=== PATIENT | male | born 1945 | race Hispanic/Latino ===

== ENCOUNTER 2020-01-16 16:26 | Emergency (ER) | payer MEDICARE ==
[~2020-01-16] VITALS: Ht 162.6 cm; Wt 59.0 kg
[2020-01-16] MEDS ORDERED: SODIUM CHLORIDE 0.9% 1000ML 1,000 ML IV STA (16:44)
[2020-01-16] MEDS ORDERED: CEFTRIAXONE SOD 1 GM/NS 50 ML 50 ML IV ONE (16:45)
[2020-01-16 16:52] LABS: BASOPHILS # (AUTO) 0.1 (0.0-0.1); BASOPHILS % 0.6 % (0.0-1.0); EOSINOPHILS % 0.3 % (0.0-6.0); HEMATOCRIT 40.5 % (38.2-49.6); HEMOGLOBIN 13.4 g/dL (14.0-18.0); LYMPHOCYTES # (AUTO) 0.9 (1.0-3.2); LYMPHOCYTES % 8.5 % (18.0-39.1); MEAN CORPUSCULAR HEMOGLOBIN 28.2 pg (28-32); MEAN CORPUSCULAR HGB CONC 33.1 g/dL (31-35); MEAN CORPUSCULAR VOLUME 85.1 fL (81-99); MONOCYTES % 9.9 % (4.4-11.3); NEUTROPHILS # (AUTO) 7.7 (2.1-6.9); NEUTROPHILS % 76.3 % (38.7-80.0); PLATELET COUNT 361 x10e3/uL (140-360); RED BLOOD COUNT 4.76 x10e6/uL (4.3-5.7); RED CELL DISTRIBUTION WIDTH 11.9 % (11.7-14.4)
[2020-01-16 16:56] LABS: INR 1.23; PROTHROMBIN TIME 16.1 seconds (11.9-14.5)
[2020-01-16 16:57] LABS: PARTIAL THROMBOPLASTIN TIME 31.4 seconds (23.8-35.5)
[2020-01-16] MEDS ORDERED: DEXAMETHASONE SOD PHOS INJ 4 MG/ML VIAL IV ONE (17:00)
[2020-01-16] MEDS ORDERED: ACETAMINOPHEN 325 MG TAB PO ONE (17:00)
[2020-01-16 17:07] LABS: ALANINE AMINOTRANSFERASE 27 IU/L (0-55); ALBUMIN 2.6 g/dL (3.5-5.0); ALBUMIN/GLOBULIN RATIO 0.5 (0.8-2.0); ALKALINE PHOSPHATASE 50 IU/L (40-150); ANION GAP 14.3 mmol/L (8-16); BLOOD UREA NITROGEN 19 mg/dL (7-26); BUN/CREATININE RATIO 22 (6-25); CALCIUM 8.1 mg/dL (8.4-10.2); CARBON DIOXIDE 31 mmol/L (22-29); CHLORIDE 96 mmol/L (98-107); CREATINE KINASE 55 IU/L (30-200); CREATININE, SERUM 0.87 mg/dL (0.72-1.25); EST GLOMERULAR FILTRATION RATE > 60 ML/MIN (60-); GLUCOSE 112 mg/dL (74-118); MAGNESIUM 2.3 MG/DL (1.3-2.1); POTASSIUM 3.3 mmol/L (3.5-5.1); SODIUM 138 mmol/L (136-145)
[2020-01-16] MEDS ORDERED: AZITHROMYCIN 500MG/NS 250 ML 250 ML IV ONE (17:30)
--- NOTE | 2020-01-16 17:53 | Emergency Department Note ---
History of Present Illnes History of Present Illness Chief Complaint: COVID PUI History of Present Illness This is a 74 year old male Patient in from home with complaints of fever, shortness of breath and weakness over the last 5 days. Patient reports he tested positive for covid last sunday01/10/20 and has been feeling bad since. Per EMS the patient was hypoxic on room air at 88% and 93% on 4L NC. In triage the patient is 95% on room air and is not in any obvious respiratory distress. Historian: Patient, Leasing Specialist/EMS Arrival Mode: [facility] Treatment INSURANCE PROCESSOR: O2 Industrial Relations Manager Required: No Onset (how long ago): day(s) (5) Radiation: Reports non-radiation Severity: moderate Onset quality: gradual Timing of current episode: constant Progression: worsening Chronicity: new Context: Denies recent illness Relieving factors: none Exacerbating factors: none Associated symptoms: Reports cough, Reports fever/chills, Reports malaise, Reports shortness of breath, Reports weakness, Reports other (ACHY) (MIGUEL ROSE MD) Past Medical/Family History Physician Review I have reviewed the patient's past medical and family history. Any updates have been documented here. (MIGUEL ROSE MD) Past Medical History Recent Fever: Yes Clinical Suspicion of Infectio: No New/Unexplained Change in Ment: No Past Medical History: Hypertension, Hyperlipedemia Past Surgical History: None (MIGUEL ROSE MD) Recent Fever: Yes Clinical Suspicion of Infectio: Yes New/Unexplained Change in Ment: No (ANNA CAMPBELL DO) Social History Smoking Cessation: Never Smoker Counseling Performed: No Alcohol Use: Occasional Any Illegal Drug Use: No TB Exposure/Symptoms: No Physically hurt or threatened: No (MIGUEL ROSE MD) Family History Family history of heart diseas: No (MIGUEL ROSE MD) Other Any Pre-Existing Lines (PICC,: No (MIGUEL ROSE MD) Review of Systems Review of Systems Constitutional: Reports as per HPI, Reports fever, Reports weakness EENTM: Reports no symptoms Cardiovascular: Reports as per HPI Respiratory: Reports dyspnea Gastrointestinal: Reports no symptoms Genitourinary: Reports no symptoms Musculoskeletal: Reports other (ACHING ALL OVER) Integumentary: Reports no symptoms Neurological: Reports no symptoms Psychological: Reports no symptoms Endocrine: Reports no symptoms Hematological/Lymphatic: Reports no symptoms (MIGUEL ROSE MD) Physical Exam Related Data Allergies: Coded Allergies: No Known Allergies (Unverified , 01/16/20) Triage Vital Signs Vital Signs Date Time Temp Pulse Resp B/P (MAP) Pulse Ox O2 Delivery O2 Flow Rate FiO2 01/16/20 16:29 100.3 75 21 160/84 96 Nasal Cannula 4.0 Vital signs reviewed: Yes (MIGUEL ROSE MD) Physical Exam CONSTITUTIONAL Constitutional: Present well-developed, Present well-nourished HENT HENT: Present normocephalic, Present atraumatic, Present oropharynx clear/moist, Present nose normal HENT L/R: Present left ext ear normal, Present right ext ear normal EYES Eyes: Reports PERRL, Reports conjunctivae normal NECK Neck: Present ROM normal PULMONARY Pulmonary: Present effort normal, Present other (DECR BS'S BIBASILAR) CARDIOVASCULAR Cardiovascular: Present regular rhythm, Present heart sounds normal, Present capillary refill normal, Present normal rate GASTROINTESTINAL Abdominal: Present soft, Present nontender, Present bowel sounds normal GENITOURINARY Genitourinary: Present exam deferred SKIN Skin: Present warm, Present dry MUSCULOSKELETAL Musculoskeletal: Present ROM normal NEUROLOGICAL Neurological: Present alert, Present oriented x 3, Present no gross motor or sensory deficits PSYCHOLOGICAL Psychological: Present mood/affect normal, Present judgement normal (MIGUEL ROSE MD) Results Laboratory Result Diagram: 01/16/20 1637 01/16/20 1637 Laboratory Laboratory Tests Test 01/16/20 16:37 White Blood Count 10.09 x10e3/uL (4.8-10.8) Red Blood Count 4.76 x10e6/uL (4.3-5.7) Hemoglobin 13.4 g/dL (14.0-18.0) Hematocrit 40.5 % (38.2-49.6) Mean Corpuscular Volume 85.1 fL (81-99) Mean Corpuscular Hemoglobin 28.2 pg (28-32) Mean Corpuscular Hemoglobin Concent 33.1 g/dL (31-35) Red Cell Distribution Width 11.9 % (11.7-14.4) Platelet Count 361 x10e3/uL (140-360) Neutrophils (%) (Auto) 76.3 % (38.7-80.0) Lymphocytes (%) (Auto) 8.5 % (18.0-39.1) Monocytes (%) (Auto) 9.9 % (4.4-11.3) Eosinophils (%) (Auto) 0.3 % (0.0-6.0) Basophils (%) (Auto) 0.6 % (0.0-1.0) Neutrophils # (Auto) 7.7 (2.1-6.9) Lymphocytes # (Auto) 0.9 (1.0-3.2) Monocytes # (Auto) 1.0 (0.2-0.8) Eosinophils # (Auto) 0.0 (0.0-0.4) Basophils # (Auto) 0.1 (0.0-0.1) Absolute Immature Granulocyte (auto 0.44 x10e3/uL (0-0.1) Prothrombin Time 16.1 seconds (11.9-14.5) Prothromb Time International Ratio 1.23 Activated Partial Thromboplast Time 31.4 seconds (23.8-35.5) Sodium Level 138 mmol/L (136-145) Potassium Level 3.3 mmol/L (3.5-5.1) Chloride Level 96 mmol/L (98-107) Carbon Dioxide Level 31 mmol/L (22-29) Anion Gap 14.3 mmol/L (8-16) Blood Urea Nitrogen 19 mg/dL (7-26) Creatinine 0.87 mg/dL (0.72-1.25) Estimat Glomerular Filtration Rate > 60 ML/MIN (60-) BUN/Creatinine Ratio 22 (6-25) Glucose Level 112 mg/dL (74-118) Calcium Level 8.1 mg/dL (8.4-10.2) Magnesium Level 2.3 MG/DL (1.3-2.1) Total Bilirubin 1.3 mg/dL (0.2-1.2) Aspartate Amino Transf (AST/SGOT) 31 IU/L (5-34) Alanine Aminotransferase (ALT/SGPT) 27 IU/L (0-55) Alkaline Phosphatase 50 IU/L (40-150) Creatine Kinase 55 IU/L (30-200) Creatine Kinase MB 0.70 ng/mL (0-5.0) Troponin I 0.005 ng/mL (0-0.300) B-Type Natriuretic Peptide 33.2 pg/mL (0-100) Total Protein 7.5 g/dL (6.5-8.1) Albumin 2.6 g/dL (3.5-5.0) Globulin 4.9 g/dL (2.3-3.5) Albumin/Globulin Ratio 0.5 (0.8-2.0) Coronavirus (PCR) Detected (NOTDETECTED) Influenza Virus Types A,B Antigen Negative (NEGATIVE) Lab results reviewed: Yes (MIGUEL ROSE MD) Imaging Imaging results reviewed: Yes Impressions CXR interpretated by me : No PTX, cardiomegaly, AIRSPACE opacity in right latera l lung (ANNA CAMPBELL DO) Procedures 12 Lead ECG Interpretation ECG Interpretation : ECG: ECG 1 Industrial Relations Manager: Interpreted by ED physician Date: Jan 16, 2020 Time: 16:28 Rhythm: sinus rhythm Rate: normal BPM: 70 QRS axis: left Conduction: right bundle branch block ST segments normal: Yes T wave inversion: aVR, V1 Other findings: LVH Clinical Impression: abnormal ECG (MIGUEL ROSE MD) Assessment & Plan Medical Decision Making MDM LIKELY COVID PNEUMONIA, MILDLY HYPOXIC 88% ON RA, 98% ON 4L NC - CBC, CHEM, ECG, CARDIACS, CXR, COVID SWAB - R/O COVID19, PNEUMONIA, STEMI/NSTEMI, CHF (MIGUEL ROSE MD) MDM Diff Dx : COVID-19 URI, Sepsis, pna, PTX (ANNA CAMPBELL DO) Reassessment Reassessment CXR AND COVID SWAB PENDING - REPORT TO DR CAMPBELL. LIKELY TRANSFER IF COVID POSITIVE (MIGUEL ROSE MD) Assessment & Plan Final Impression: (1) Suspected COVID-19 virus infection (MIGUEL ROSE MD) Final Impression: (1) Upper respiratory tract infection due to COVID-19 virus (2) Hypoxia (ANNA CAMPBELL DO) Depart Disposition: TRANS TO OTHER [facility] Last Vital Signs Date Time Temp Pulse Resp B/P (MAP) Pulse Ox O2 Delivery O2 Flow Rate FiO2 01/16/20 17:14 70 22 140/84 93 Nasal Cannula 2.0 01/16/20 16:29 100.3 (MIGUEL ROSE MD) Medications in the ED Sodium Chloride 1,000 ml @ 0 mls/hr Q0M STAT IV Last administered on 01/16/20at 17:13; Admin Dose 999 MLS/HR; Start 01/16/20 at 16:44; Stop 01/16/20 at 16:48; Status DC Ceftriaxone Sodium 50 ml @ 100 mls/hr ONCE ONCE IV Last administered on 01/16/20at 17:13; Admin Dose 100 MLS/HR; Start 01/16/20 at 16:45; Stop 01/16/20 at 17:14; Status DC Azithromycin 250 ml @ 200 mls/hr ONCE ONCE IV ; Start 01/16/20 at 17:30; Stop 01/16/20 at 18:44 Dexamethasone Sodium Phosphate 6 mg ONCE ONCE IV Last administered on 01/16/20at 17:13; Admin Dose 6 MG; Start 01/16/20 at 17:00; Stop 01/16/20 at 17:01; Status DC Acetaminophen 975 mg ONCE ONCE PO Last administered on 01/16/20at 17:13; Admin Dose 975 MG; Start 01/16/20 at 17:00; Stop 01/16/20 at 17:01; Status DC (MIGUEL ROSE MD) MIGUEL ROSE MD Jan 16, 2020 17:53 ANNA CAMPBELL DO Jan 16, 2020 19:31
--- NOTE | 2020-01-16 19:56 | NUR ---
Report attempted to [facility] at this time.
--- NOTE | 2020-01-16 20:05 | Diagnostic Imaging Report ---
EXAMINATION: CHEST SINGLE (PORTABLE) INDICATION: ^Y ^covid ^[id number] ^[id number] COMPARISON: None FINDINGS: TUBES and LINES: None. LUNGS: Low lung volumes with bronchovascular crowding. There is multifocal interstitial and airspace opacity throughout both lungs. PLEURA: No pleural effusion or pneumothorax. HEART AND MEDIASTINUM: The cardiomediastinal silhouette is unremarkable. There are atherosclerotic calcifications within the aorta. BONES AND SOFT TISSUES: Degenerative changes in the spine and shoulders. Soft tissues are unremarkable. UPPER ABDOMEN: No free air under the diaphragm. IMPRESSION: Diffuse interstitial and airspace opacities most compatible with multifocal pneumonia with probable superimposed pulmonary edema. Preliminary result was discussed with Dr. Loving at 7:45 PM on 01/16/2020. Signed by: Tete Shen MD on 01/16/2020 8:02 PM
--- OUTSIDE RECORDS SUMMARY | 2020-01-17 10:13 | XMS REPORT | Continuity of Care Document ---
Author Author [facility] t Organization [facility] Address [address] [place] [address] Phone Unavailable Care Team Providers Care Television Cable Installer Name Role Phone Amadou NIELSEN III PCP Unavailable CONSTANTINE MONTANEZ Attphys Unavailable Tarik HARPER, Constantine Rivera Attphys Sushant HARPER, Kyara Golden Attphys [phone] ANNA CAMPBELL Attphys Unavailable CONSTANTINE MONTANEZ Admphys Unavailable Payers Payer Name Policy Type Policy Number Effective Date Expiration Date S sara [employer] MEDICARE MCD CAREAMERIGROUP [id number]/2019 -Present [id number] 2019 00:00:00 [facility] [employer] [id number] 2019 00:00:00 [facility] Problems Condition Name Condition Details Condition Category Status Onset Date Resolution Date Last Treatment Date Treating Clinician Comments Source Pneumonia due to COVID-19 virus Pneumonia due to COVID-19 virus Dis ease Active 2020-01-16 00:00:00 [facility] Acute respiratory failure with hypoxia Acute respiratory guanakito lure with hypoxia Disease Active 2020-01-16 00:00:00 [facility] Suspected severe acute respiratory syndr ome coronavirus 2 (SARS-CoV-2) infection Problem Active [facility] Upper respiratory tract infection due to severe acute respiratory syndrome coronavirus 2 (SARS-CoV-2) Problem Active [facility] Hypoxia Problem Active [facility] Allergies, Adverse Reactions, Alerts Allergy Name Allergy Type Status Severity Reaction(s) Onset Date Inacti ve Date Treating Clinician Comments Source No Known Allergies DA Active U 2015-12-10 00:00:00 [facility] Social History Social Habit Start Date Stop Date Quantity Comments Source Sex Assigned At [facility] Exposure to SARS-CoV-2 (event) Yes [facility] Medications Ordered Medication Name Filled Medication Name Start Date Stop Da te Current Medication? Ordering Clinician Indication Dosage Frequency Signature (SIG) Comments Components Source tamsulosin (FLOMAX) 0.4 mg Cap 24 hr capsule 2020-01-17 01:39:33 Yes .4mg QD Take 0.4 mg by mouth daily. [facility] donepeziL (ARICEPT) 5 MG tablet 2020-01-17 01:39:33 Yes mild to moderate Alzheimer's type dementia 5mg QD Take 5 mg by mouth nightly. [facility] lisinopriL (PRINIVIL,ZESTRIL) 40 MG tablet 2020-01-17 01:39: 33 Yes hypertension 40mg QD Take 40 mg by mouth daily. [facility] Vital Signs Vital Name Observation Time Observation Value Comments Source Systolic blood pressure 2020-01-17 09:00:00 157 mm[Hg] [facility] Diastolic blood pressure 2020-01-17 09:00:00 76 mm[Hg] [facility] Heart rate 2020-01-17 09:00:00 68 /min [facility] Body temperature 2020-01-17 09:00:00 36.39 Gwendolyn [facility] Respiratory rate 2020-01-17 09:00:00 18 /min [facility] Oxygen saturation in Arterial blood by Pulse oximetry 2019-02 09:00:00 98 [facility] height 2020-01-16 22:01:00 162.6 cm [facility] Body weight 2020-01-16 22:01:00 74.662 kg [facility] BMI 2020-01-16 22:01:00 28.25 kg/m2 [facility] Heart Rate 2020-01-16 20:16:00 55 /min [facility] Respiratory rate 2020-01-16 20:16:00 22 /min [facility] Oxygen saturation by Pulse oximetry 2020-01-16 20:16:00 99 /min [facility] Weight 2020-01-16 16:29:00 130 [lb_av] [facility] BMI (Body Mass Index) 2020-01-16 16:29:00 22.3 kg/m2 [facility] Procedures Procedure Date / Time Performed Performing Clinician Sour e XR CHEST 1 VIEW PORTABLE/BEDSIDE [facility]17 [facility] (7) 2020-01-17 04:13:00 Miguel Montanez Ra sheed [facility] MAGNESIUM 2020-01-17 04:13:00 [facility] PROT[facility]/INR 2020-01-17 04:13:00 Miguel Montanez [facility] CBC W/PLT COUNT & AUTO DIFFERENTIAL 2020-01-17 04:13:00 Miguel Montanez [facility] Plan of Care Planned Activity Planned Date Details Comments Source Future Scheduled Test 2019-10-28 00:00:00 INFLUENZA VACCINE (#1) [code = INFLUENZA VACCINE (#1)] [facility] Future Scheduled Test 2019-02-26 00:00:00 Medicare IPPE (WEL COME TO MEDICARE) [code = Medicare IPPE (WELCOME TO MEDICARE)] [facility] Future Scheduled Test 2012-10-09 00:00:00 PNEUMOCOCCAL 65+ Y RS (1 of 1 - [id number] PCV13) [code = PNEUMOCOCCAL 65+ YRS (1 of 1 - [id number]_[id number] PCV13)] [facility] Future Scheduled Test 1945 00:00:00 Screening for ira gnant neoplasm of colon (procedure) [code = 444110769] [facility] Encounters Start Date/Time End Date/Time Encounter Type Admission Type Attendi [facility] Facility Care Department Encounter ID Source 2020-01-16 16:50:00 2020-01-16 21:06:00 Departed Emergency Room 1 ANNA CAMPBELL [facility] [id number] [facility] 2017-01-15 08:57:00 2017-01-15 08:57:00 Outpatient C [facility] [id number] [facility] Results Test Description Test Time Test Comments Results Result Comments Source RAD, CHEST, 1 VIEW, NON DEPT 2020-01-17 08:02:00 Reason for exam:->covid, possible pnaShould this be performed at the bedside?->Yes [facility] 1945 Sex: MFINAL REPORT TECHNIQUE: Frontal view of the chest. INDICATION: covid, possible pna COMPARISON: 01/16/2020. FINDINGS: LINES/TUBES: None. LUNGS: Lung volumes are low. Peripheral consolidative opacities within the right mid and lower lung. Mild patchy opacities at the left lung base.. PLEURA: No pneumothorax or significant pleural effusion. HEART AND MEDIASTINUM: The cardiom ediastinal silhouette is within normal limits. SOFT TISSUES AND BONES: Unremarkable.Follow-up to resolution is recommended. IMPRESSION:Unchanged Multifocal consolidative opacities, right significantly greater than left, concerning for pneumonia. Signed: Kendal Hassan Verified Date/Time: 01/17/2020 08:02:46 Reading Location: [facility] B1 C013Y CT Body Reading Room chest 1 view portable / bedside 2020-01-17 08:02:00 Interface, External Ris In - 01/17/2020 8:04 AM CSTFINAL REPORT TECHNIQUE: Frontal view of the chest. INDICATION: covid, possible pna COMPARISON: 01/16/2020. FINDINGS: LINES/TUBES: None. LUNGS: Lung volumes are low. Peripheral consolidative opacities within the right mid and lower lung. Mild patchy opacities at the left lung base.. PLEURA: No pneumothorax or significant pleural effusion. HEART AND MEDIASTINUM: The cardiomediastinal silhouette is within normal limits. SOFT TISSUES AND BONES: Unremarkable.Follow-up to resolution is recommended. IMPRESSION:Unchanged Multifocal consolidative opacities, right significantly greater than left, concerning for pneumonia. Signed: Kendal Hassan [facility] Verified Date/Time: 01/17/2020 08:02:46 Reading Location: [facility] B1 C013Y CT Body Reading Room [facility] Basic metabolic panel 2020-01-17 05:30:00 Test Item Sodium (test code = 2951-2) 138 meq/L 135-148 Potassium (test code = 2823-3) 4.2 meq/L 3.5-5.5 Chloride (test code = 2075-0) 102 meq/L 98-106 CO2 (test code = 2027-9) 27 meq/L 20-31 BUN (test code = 3094-0) 22 mg/dL 10-26 Creatinine (test code = 2160-0) 0.75 mg/dL 0.5-1.2 Glucose (test code = 2345-7) 167 mg/dL 70-110 H Calcium (test code = 65176-8) 7.6 mg/dL 8.5-10.5 L EGFR (test code = 33833-3) I NSUFFICIENT CLINICAL DATA TO CALCULATE ESTIMATED GFR. LEXIS (test code = LEXIS) Windows Technical Specialist ID - [email or web address] Lab Interpretation (test code = 49370-8) [facility]normal [facility] [id number] 05:30:00* Test Item Value Reference Range Interpretation Comments SODIUM (BEAKER) (test code = 381) 138 meq/L 135-148 POTASSIUM (BEAKER) (test code = 379) 4.2 meq/L 3.5-5.5 CHLORIDE (BEAKER) (test code = 382) 102 meq/L 98-106 CO2 (BEAKER) (test code = 355) 27 meq/L 20-31 BLOOD UREA NITROGEN (BEAKER) (test code = 354) 22 mg/dL 10-26 CREATININE (BEAKER) (test code = 358) 0.75 mg/dL 0.50-1.20 GLUCOSE RANDOM (BEAKER) (test code = 652) 167 mg/dL 70-110 H CALCIUM (BEAKER) (test code = 697) 7.6 mg/dL 8.5-10.5 L EGFR (BEAKER) (test code = 1092) INSUFFICIENT CLINICAL DATA TO CALCULATE ESTIMATED GFR. Windows Technical Specialist ID - [id number] 05:19:00* Test Item Value Reference Range Interpretation Comments Magnesium (test code = 92666-2) 2.3 mg/dL 1.5-3 LEXIS (test code = LEXIS) Windows Technical Specialist ID - MADELINE Lab Interpretation (test code = 48330-6) Normal [facility]2020-11-21 05:19:00* Test Item Value Reference Range Interpretation Comments MAGNESIUM (BEAKER) (test code = 627) 2.3 mg/dL 1.5-3.0 [employer] Technical Specialist ID - MADELINEProthrombin time/NTX4619-07-02 04:31:00* Test Item Value Reference Range Interpretation Comments Protime (test code = 5902-2) 17.2 11.8- 14.4 seconds H INR (test code = 6301-6) 1.40 1.20-1.50 LEXIS (test code = LEXIS) RECOMMENDED COUMADIN/WARFARI N INR THERAPY RANGESSTANDARD DOSE: 2.0 - 3.0 Includes: PROPHYLAXIS for venous thrombosis, systemic embolization; TREATMENT for venous thrombosis and/or pulmonary embolus.HIGH RISK: Target INR is 2.5-3.5 for patients with mechanical heart valves. Lab Interpretation (test code = 97058-7) [facility]normal [facility][id number] 04:31:00* Test Item Value Reference Range Interpretation Comments PROTIME (BEAKER) (test code = 759) 17.2 seconds 11.8-14.4 H INR (BEAKER) (test code = 370) 1.40 1.20-1.50 RECOMMENDED COUMADIN/WARFARIN INR THERAPY RANGESSTANDARD DOSE: 2.0 - 3.0 Inclu jenifer: PROPHYLAXIS for venous thrombosis, systemic embolization; TREATMENT for danika ous thrombosis and/or pulmonary embolus.HIGH RISK: Target INR is 2.5-3.5 for pat ients with mechanical heart valves.CBC with platelet count + automated diff 2020-01-17 04:29:00* Test Item Value Reference Range Interpretation Comments WBC (test code = 6690-2) 8.1 4.0- 10.0 K/L RBC (test code = 789-8) 4.25 4.20- 5.80 M/L MCHC (test code = 786-4) 33.1 32.0- 36.0 GM/DL L Hematocrit (test code = 4544-3) 36.3 % 36-50 MCV (test code = 787-2) 85.4 fL 82-99 MCH (test code = 785-6) 28.2 pg 27-33 RDW (test code = 788-0) 11.9 % 12-15 L Platelets (test code = 777-3) 310 150- 430 K/CU MM MPV (test code = 17638-6) 10.0 fL 6-11.5 nRBC (test code = 413) 0 0- 0 /100 WBC % Neutros (test code = 429) 87 % % Lymphs (test code = 430) 6 % % Monos (test code = 431) 5 % % Eos (test code = 432) 0 % % Baso (test code = 437) 0 % # Neutros (test code = 670) 7.02 1.80- 8.00 K/L # Lymphs (test code = 414) 0.47 1.48- 4.50 K/L L # Monos (test code = 415) 0.37 0.00- 1.30 K/L # Eos (test code = 416) 0.00 0.00- 0.50 K/L # Baso (test code = 417) 0.01 0.00- 0.20 K/L Immature Granulocytes-Relative (test code = 2801) 2 % 0-0 H Lab Interpretation (test code = 28942-3) Abnormal [facility] W/PLT COUNT & AUTO [id number] 04:29:00* Test Item Value Reference Range Interpretation Comments WHITE BLOOD CELL COUNT (BEAKER) (test code = 775) 8.1 K/ L 4.0- 10.0 RED BLOOD CELL COUNT (BEAKER) (test code = 761) 4.25 M/ L 4.20-5 .80 HEMOGLOBIN (BEAKER) (test code = 410) 12.0 GM/DL 13.0-16.8 L HEMATOCRIT (BEAKER) (test code = 411) 36.3 % 36.0-50.0 MEAN CORPUSCULAR VOLUME (BEAKER) (test code = 753) 85.4 fL 82. 0-99.0 MEAN CORPUSCULAR HEMOGLOBIN (BEAKER) (test code = 751) 28.2 pg 27.0-33.0 MEAN CORPUSCULAR HEMOGLOBIN CONC (BEAKER) (test code = 752) 33.1 GM/DL 32.0-36.0 RED CELL DISTRIBUTION WIDTH (BEAKER) (test code = 412) 11.9 % 12.0-15.0 L PLATELET COUNT (BEAKER) (test code = 756) 310 K/CU MM 150-430 MEAN PLATELET VOLUME (BEAKER) (test code = 754) 10.0 fL 6.0-11 .5 NUCLEATED RED BLOOD CELLS (BEAKER) (test code = 413) 0 /100 WBC 0 -0 NEUTROPHILS RELATIVE PERCENT (BEAKER) (test code = 429) 87 % LYMPHOCYTES RELATIVE PERCENT (BEAKER) (test code = 430) 6 % MONOCYTES RELATIVE PERCENT (BEAKER) (test code = 431) 5 % EOSINOPHILS RELATIVE PERCENT (BEAKER) (test code = 432) 0 % BASOPHILS RELATIVE PERCENT (BEAKER) (test code = 437) 0 % NEUTROPHILS ABSOLUTE COUNT (BEAKER) (test code = 670) 7.02 K/ L 1.80-8.00 LYMPHOCYTES ABSOLUTE COUNT (BEAKER) (test code = 414) 0.47 K/ L 1.48-4.50 L MONOCYTES ABSOLUTE COUNT (BEAKER) (test code = 415) 0.37 K/ L 0. 00-1.30 EOSINOPHILS ABSOLUTE COUNT (BEAKER) (test code = 416) 0.00 K/ L 0.00-0.50 BASOPHILS ABSOLUTE COUNT (BEAKER) (test code = 417) 0.01 K/ L 0. 00-0.20 IMMATURE GRANULOCYTES-RELATIVE PERCENT (BEAKER) (test code = 2801) 2 % 0-0 H CHEST SINGLE (PORTABLE)2020-01-16 20:00:00 [facility] : 1945 Sex: M [place] [id number] Patient Name: JYOTSNA DYER MR #: [id number] : 1945 Age/Sex: 74/M Req #: [id number] [facility] Physician: Tyler hernandez by: MIGUEL ROSE MD Report #: [id number] cation: ER Room/Bed: ____ Procedure: [id number] DX/CHEST SINGLE (PORTABLE) Exam Date: 03/17/19 Exam Time: 1707 REPORT STATUS: Signed EXAMINATION: CHEST SINGLE (PORTABLE) INDICATION: Y covid [id number] COMPARISON: None FINDINGS: TUBES and LINES: None. LUNGS: Low lung vol umes with bronchovascular crowding. There is multifocal interstitial and airsp hazel opacity throughout both lungs. PLEURA: No pleural effusion or pneumoth orax. HEART AND MEDIASTINUM: The cardiomediastinal silhouette is unremarka ble. There are atherosclerotic calcifications within the aorta. BONES AND SOFT TISSUES: Degenerative changes in the spine and shoulders. Soft tissues are unremarkable. UPPER ABDOMEN: No free air under the diaphragm. IMPRESSION: Diffuse interstitial and airspace opacities most compatible w ith multifocal pneumonia with probable superimposed pulmonary edema. Prel iminary result was discussed with Dr. Campbell at 7:45 PM on 01/16/2020. Sig tiffanie by: Ida Gonzalez MD on 01/16/2020 8:02 PM Dictated By: IDA Sanches MD 01 Transcribed By: ANIYAH on 01/16/202001 COPY TO: MIGUEL ROSE MD Blood leukocytes automated count (number/volume)2020-01-16 16:37:00* Test Item Value Reference Range Interpretation Comments White Blood Count (test code = 6690-2) 10.09 10*3/uL 4.8-10.8 [facility] automated count (number/volume)2020-01-16 16:37:00* Test Item Value Reference Range Interpretation Comments Red Blood Count (test code = 789-8) 4.76 10*6/mL 4.3-5.7 [facility] Austin[facility] hemoglobin measurement (moles/volume)2020-01-16 16:37:00* Test Item Value Reference Range Interpretation Comments Hemoglobin (test code = 65846-5) 13.4 g/dL 14.0-18.0 [facility] AustinAutomated blood hematocrit (volume fraction)2020-01-16 16:37:00* Test Item Value Reference Range Interpretation Comments Hematocrit (test code = 4544-3) 40.5 % 38.2-49.6 [facility] AustinAutomated erythrocyte mean corpuscular uilqiy2111-04-37 16:37:00* Test Item Value Reference Range Interpretation Comments Mean Corpuscular Volume (test code = 787-2) 85.1 81-99 [facility] AustinAutomated erythrocyte mean corpuscular hemoglobin (mass per erythrocyte)2020-01-16 16:37:00* Test Item Value Reference Range Interpretation Comments Mean Corpuscular Hemoglobin (test code = 785-6) 28.2 pg 28-32 [facility] AustinAutomated erythrocyte mean corpuscular hemoglobin concentration measurement (mass/volume)2020-01-16 16:37:00* Test Item Value Reference Range Interpretation Comments Mean Corpuscular Hemoglobin Concent (test code = 786-4) 33.1 g/dL 31-35 [facility] AustinRDW DrnAz-Lvl2011-40-20 16:37:00* Test Item Value Reference Range Interpretation Comments Red Cell Distribution Width (test code = 61039-1) 11.9 % 11.7 -14.4 [facility] AustinAut[facility]oned blood platelet count (count/volume)2020-01-16 16:37:00* Test Item Value Reference Range Interpretation Comments Platelet Count (test code = 777-3) 361 10*3/uL 140-360 [facility] blood segmented neutrophil count as percentage of total gtoamfquiv7107-60-82 16:37:00* Test Item Value Reference Range Interpretation Comments Neutrophils (%) (Auto) (test code = 99003-5) 76.3 % 38.7-80.0 [facility] AustinAut[facility]oned blood lymphocyte count as percentage ot total ymppyeuhhp3911-42-74 16:37:00* Test Item Value Reference Range Interpretation Comments Lymphocytes (%) (Auto) (test code = 736-9) 8.5 % 18.0-39.1 [facility] as percentage of total jetbyylafy9771-41-71 16:37:00* Test Item Value Reference Range Interpretation Comments Monocytes (%) (Auto) (test code = 5905-5) 9.9 % 4.4-11.3 [facility] AustinAutom[facility] blood eosinophil count as percentage of total zhengqlabk8969-72-53 16:37:00* Test Item Value Reference Range Interpretation Comments Eosinophils (%) (Auto) (test code = 713-8) 0.3 % 0.0-6.0 [facility] AustinAutom[facility] blood basophil count as percentage of total dqcsidonoy9356-77-81 16:37:00* Test Item Value Reference Range Interpretation Comments Basophils (%) (Auto) (test code = 706-2) 0.6 % 0.0-1.0 [facility] AustinFluoroscopic procedure less than one hour xhvwkknp1748-78-43 16:37:00* Test Item Value Reference Range Interpretation Comments IM GRANULOCYTES % (test code = IM GRANULOCYTES %) 4.4 % 0.0- 1.0 [facility] 2020-01-16 16:37:00* Test Item Value Reference Range Interpretation Comments Neutrophils # (Auto) (test code = 751-8) 7.7 2.1-6.9 [facility] AustinBlood lymphocytes count (number/volume) 2020-01-16 16:37:00* Test Item Value Reference Range Interpretation Comments Lymphocytes # (Auto) (test code = 28202-9) 0.9 1.0-3.2 [facility] monocytes automated count (number/volume)2020-01-16 16:37:00* Test Item Value Reference Range Interpretation Comments Monocytes # (Auto) (test code = 742-7) 1.0 0.2-0.8 [facility] AustinAutom[facility] blood eosinophil count 2020-01-16 16:37:00* Test Item Value Reference Range Interpretation Comments Eosinophils # (Auto) (test code = 711-2) 0.0 0.0-0.4 [facility] AustinAutom[facility] blood basophil count (count/volume)2020-01-16 16:37:00* Test Item Value Reference Range Interpretation Comments Basophils # (Auto) (test code = 704-7) 0.1 0.0-0.1 [facility] AustinFluoroscopic procedure less than one hour cykrkxle4787-75-43 16:37:00* Test Item Value Reference Range Interpretation Comments Absolute Immature Granulocyte (auto (benjamin t code = Absolute Immature Granulocyte (auto) 0.44 10*3/uL 0-0.1 [facility] AustinProthrombin time (PT) in platelet poor plasma by coagulation puwwh6413-01-48 16:37:00* Test Item Value Reference Range Interpretation Comments Prothrombin Time (test code = 5902-2) 16.1 s 11.9-14.5 [facility] AustinINR in Platelet poor plasma by Coagulation qyltd3499-82-89 16:37:00* Test Item Value Reference Range Interpretation Comments Prothromb Time International Ratio (test code = 6301-6) 1.23 Oral Anticoagulant Therapy INR Values:1. Low Intensity Therapy 1.5 - 2.02 . Moderate Intensity Therapy 2.0 - 3.03. High Intensity Therapy(1) 2.5 - 3. 54. High Intensity Therapy(2) 3.0 - 4.05. Panic Value INR > 5.0 [facility] AustinActivated partial thromboplastin time (aPTT) in platelet poor plasma by coagulation rekmh9111-43-15 16:37:00* Test Item Value Reference Range Interpretation Comments Activated Partial Thromboplast Time (test code = 20801-0) 31.4 s 23.8-35.5 [facility] sodium measurement (moles/volume)2020-01-16 16:37:00* Test Item Value Reference Range Interpretation Comments Sodium Level (test code = 2951-2) 138 mmol/L 136-145 [facility] or plasma potassium measurement (moles/volume)2020-01-16 16:37:00* Test Item Value Reference Range Interpretation Comments Potassium Level (test code = 2823-3) 3.3 mmol/L 3.5-5.1 [facility] or plasma chloride measurement (moles/volume)2020-01-16 16:37:00* Test Item Value Reference Range Interpretation Comments Chloride Level (test code = 2075-0) 96 mmol/L 98-107 [facility] AustinInfluenza virus A and B antigen identification by lhtgigkoaebdrjpxvh6575-55-87 16:37:00* Test Item Value Reference Range Interpretation Comments Influenza Virus Types A,B Antigen (test code = 88131-7) NEGATIVE NEGATIVE [facility]um or plasma carbon dioxide, total measurement (moles/volume)2020-01-16 16:37:00* Test Item Value Reference Range Interpretation Comments Carbon Dioxide Level (test code = 2028-9) 31 mmol/L - [facility]view[facility]um or plasma anion jqe9946-17-02 16:37:00* Test Item Value Reference Range Interpretation Comments Anion Gap (test code = 31656-3) 14.3 mmol/L 8- [facility]um or plasma urea nitrogen measurement (mass/volume)2020-01-16 16:37:00* Test Item Value Reference Range Interpretation Comments Blood Urea Nitrogen (test code = 3094-0) 19 mg/dL - [facility]um or plasma creatinine measurement (mass/volume)2020-01-16 16:37:00* Test Item Value Reference Range Interpretation Comments Creatinine (test code = 2160-0) 0.87 mg/dL 0.72-1.25 [facility]um or plasma urea nitrogen/creatinine mass figpc9532-61-38 16:37:00* Test Item Value Reference Range Interpretation Comments BUN/Creatinine Ratio (test code = 3097-3) 22 6- [facility] AustinEstimated glomerular filtration rate (GFR) wipfuziwnzvkc8602-77-31 16:37:00* Test Item Value Reference Range Interpretation Comments Estimat Glomerular Filtration Rate (test code = 150097407) > 60 mL/ min >60 Ranges were taken from the National Kidney Disease Education Program and the [facility] literature.Reference ranges:60 or greater: Fpmvxc82-62 ( for 3 consecutive months): Chronic kidney disease 15 or less: Kidney failureAscension Seton Medical Center AustinGlucose ryawxrvniya1119-21-75 16:37:00* Test Item Value Reference Range Interpretation Comments Glucose Level (test code = YOR5747) 112 mg/dL 74-118 [facility]viewerum or plasma calcium measurement (mass/volume)2020-01-16 16:37:00* Test Item Value Reference Range Interpretation Comments Calcium Level (test code = 05602-1) 8.1 mg/dL 8.4-10.2 [facility]um or plasma magnesium measurement (mass/volume)2020-01-16 16:37:00* Test Item Value Reference Range Interpretation Comments Magnesium Level (test code = 58909-1) 2.3 mg/dL 1.3-2.1 [facility] or plasma total bilirubin measurement (mass/volume)2020-01-16 16:37:00* Test Item Value Reference Range Interpretation Comments Total Bilirubin (test code = 1975-2) 1.3 mg/dL 0.2-1.2 [facility] AustinFluoroscopic procedure less than one hour eduxiefm2442-92-15 16:37:00* Test Item Value Reference Range Interpretation Comments Aspartate Amino Transf (AST/SGOT) (test code = Aspartate Amino Transf (AST/SGOT)) 31 [IU]/L 5-34 [facility]um or plasma alanine aminotransferase measurement (enzymatic activity/volume)2020-01-16 16:37:00* Test Item Value Reference Range Interpretation Comments Alanine Aminotransferase (ALT/SGPT) (test code = 1742-6) 27 [IU]/L 0-55 [facility] or plasma protein measurement (mass/volume)2020-01-16 16:37:00* Test Item Value Reference Range Interpretation Comments Total Protein (test code = 2885-2) 7.5 g/dL 6.5-8.1 [facility] or plasma albumin measurement (mass/volume)2020-01-16 16:37:00* Test Item Value Reference Range Interpretation Comments Albumin (test code = 1751-7) 2.6 g/dL 3.5-5.0 [facility] (mass/volume) 2020-01-16 16:37:00* Test Item Value Reference Range Interpretation Comments Globulin (test code = 97962-2) 4.9 g/dL 2.3-3.5 [facility] albumin/globulin mass [id number] 16:37:00* Test Item Value Reference Range Interpretation Comments Albumin/Globulin Ratio (test code = 1759-0) 0.5 0.8-2.0 [facility] alkaline phosphatase measurement (enzymatic activity/volume)2020-01-16 16:37:00* Test Item Value Reference Range Interpretation Comments Alkaline Phosphatase (test code = 6768-6) 50 [IU]/L 40-150 [facility] [id number] 16:37:00* Test Item Value Reference Range Interpretation Comments B-Type Natriuretic Peptide (test code = 96336-6) 33.2 pg/mL 0-100 [facility] plasma creatine kinase measurement (enzymatic activity/volume)2020-01-16 16:37:00* Test Item Value Reference Range Interpretation Comments Creatine Kinase (test code = 2157-6) 55 [IU]/L 30-200 [facility] creatine kinase MB measurement (mass/volume)2020-01-16 16:37:00* Test Item Value Reference Range Interpretation Comments Creatine Kinase MB (test code = 41270-1) 0.70 ng/mL 0-5.0 [facility] AustinTroponin I measurement by highly sensitive enzyme [id number] 16:37:00* Test Item Value Reference Range Interpretation Comments Troponin I (test code = 72769-6) 0.005 ng/mL 0-0.300 [facility] AustinFluoroscopic procedure less than one hour [id number] 16:37:00* Test Item Value Reference Range Interpretation Comments Coronavirus (PCR) (test code = Coronavirus (PCR)) DETECTED NOTD ETECTED Results called to MARIA ELENA MONTANEZ RN at 1741 on 01/16/20 by Brown Rees. BENNIE Campbell.SARS-COV2/RT-PCR CEPHEIDResults are for the detection of SARS-COV-2 RNA. The S ARS-COV-2 RNA is generally detectable in nasopharyngeal swab specimens during th e acute phase of infection. Positive results are indicitive of active infection with SARS-COV-2; clinical correlation with patient history and other diagnostic information is necessary to determine patient infection status. Positive results do not rule out bacterial infection or co-infection with other viruses. The age nt detected may not be the definite cause of the disease.The limit of detection for this assay is 250 copies/mLThe SARS-CoV-2 test is a rapid, real-time RT-PCR test intended for the qualitative detection of nucleic acid from SARS-CoV-2 in n asopharyngeal swab specimen collected from individuals suspected of COVID-19 by their healthcare provider. This test has not been Food and Drug Administration ( FDA) cleared or approved and has been authorized by FDA under an Emergency Use A uthorization (EUA). This EUA will be effective until the declaration that circum stances exist justifying the authorization of the emergency use of in vitro diag nostic test for detection and or diagnosis of COVID-19 is terminated under secti on 564(b) of the Act, or the the EUA is revoked under 564(g) of the ACT.[facility] AustinAN[facility]2019-07-31 13:09:00 RUN DATE: 09/25/18 [place] - Lab PAGE 1 RUN TIME: 1309 Specimen Inqui ry RUN USER: INTERFACE PATIENT: WINIFRED DYER ACCT #: [id number] LOC: [place] U #: [id number] AGE/SX: 72/M ROOM: RE09/17/18REG DR: Stew Barone MD : 47 BED: DIS: STATUS: DEP SDC TLOC: SPEC #: [id number] RECD: 09/17/18 STATUS: JENNIFER RE #: [id number] ANKIT: 09/17/[address] [facility] [address]: Stew Barone MD ENTERED: 09/17/18 SP TYPE: ANUS OTHR DR: Gui Harrison MD ORDERED: GROSS COPIES TO: Gui Harrison MD [address] [place] [address] Stew Barone MD [address] [place] [address] PROCEDURES: GROSS (09/25/18-1302) TISSUES: 1. PERIANAL TISSUE - 4 O'CLOCK BX 2. PERIANAL TISSUE - 7 O'CLOCK BX 3. PERIANAL TISSUE - 9 O'CLOCK BX CLINICAL HISTORY COLLECTION DATE: 09/17/18 PERIRECTAL ULCERATION COMMENT Multiple levels of each tissue block are examined. The finding s are similar in each specimen showing squamous epithelium with epithelial hype rplasia and hyperkeratosis. Small areas of parakeratosis are focally present. Discrete areas of ulceration are not seen in any of the multiple levels examin ed. Due to the presence of mild reactive epithelial change consisting of occas ional epithelial cells with more hyperchromatic, irregular nuclei in the upper levels of the epithelium, paraffin embedded tissue was submitted for P16. P16 positivity has been considered a surrogate marker for oncogenic HPV infection. Focal patchy reactivity is present mainly in the second biopsy. However, the degree of expression is interpreted to be negative. Features diagnostic of dys plasia and malignancy are not identified. The findings are considered to be no n-specific and correlation is necessary. Intradepartmental consultation: Milton DELA CRUZ CONTINUED ON NEXT PAGE RUN DATE: 09/25/18 [facility] P AGE 4 RUN TIME: 1309 Specimen Inquiry RUN USER: INTERFACE SPEC #: [id number] PATIENT: WAYNE DYERSUS #[id number] (Continued) FINAL DIAGNOSIS Perianal ti ssue, 4 o'clock, biopsy: PIGMENTED SQUAMOUS EPITHELIUM WITH PATCHY MODERA TE PARAKERATOSIS AND CHRONIC INFLAMMATION, see comment P16 NEGAT DIVYA NEGATIVE FOR DYSPLASIA AND MALIGNANCY MULTIPLE LEVELS EXAMINED Perianal tissue, 7 o'clock, biopsy: SQUAMOUS EPITHELIUM WITH EPITH ELIAL HYPERPLASIA, HYPERKERATOSIS, FOCAL PARAKERATOSIS AND PATCHY MILD CHRONIC INFLAMMATION P16 NEGATIVE NEGATIVE FOR MALIGNANCY M ULTIPLE LEVELS EXAMINED Perianal tissue, 9 o'clock area, biopsy: SQUAMOUS EPITHELIUM WITH EPITHELIAL HYPERPLASIA, HYPERKERATOSIS, MILD REACTIVE EPITHELIAL CHANGE AND MILD MIXED INFLAMMATION P16 NEGATIVE NEGATIVE FOR DYSPLASIA AND MALIGNANCY MULTIPLE LEVELS EXAMINED RRB/montez D [id number], [id number] MACROSCOPIC The first specimen is received in formalin, labeled with the patient's name, identified as "perianal bx" and consists of a jiménez- gray mucosal lined portion of tissue measuring 1.0 x 0.7 x 0.25 cm. The base of the specimen is inked and is multi ply transected and submitted for microscopic evaluation in cassette (1). The second specimen is received in formalin, labeled with the patient's name, identified as "perianal bx 7 o'clock" and consists of a jiménez mucosal lined fr agment of tissue measuring 1.3 x 0.6 x 0.3 cm. The margin is inked in green. The specimen is multiply transected and submitted for microscopic evaluation in cassette (2). The third specimen is received in formalin, labeled with t he patient's name, identified as "perianal bx 9 o'clock" and consists of jiménez- gray mucosal lined fragment of tissue measuring 0.8 x 0.4 x 0.2 cm. Doddridge ink is placed on the tissue and it is multiply transected and submitted for micro scopic evaluation in cassette (3). GROSS PERFORMED AT [facility] CONTINUED ON NEXT PAGE ----- -------RUN DATE: 09/25/18 [facility] Lab PAGE 3 RUN TIME: 1309 Specimen Inquiry RUN USER: INTERFACE SPEC #: [id number] PATIENT: WINIFRED DYER #[id number] (Continued) MACROSCOPIC ([facility]) [facility] [address] [place] [address] [phone])[phone] MICROSCOPIC All of the stains, in cluding any controls performed, stain appropriately. MICROSCOPIC PERFORMED AT [facility] [address] [place] [address] [phone])[phone] PERFORMING SITE Diagnosis per formed at: [facility] MARGUERITE Parmar [address] [facility] [phone] Signed SIGNATURE ON FILE Kelley Henderson MD 09/25/18 1309 END OF REPORT COMPREHENSIVE METABOLIC [id number] 14:24:00* Test Item Value Reference Range Interpretation Comments SODIUM (test code = NA) 139 mmol/L 136-145 N POTASSIUM (test code = K) 3.7 mmol/L 3.5-5.1 N CHLORIDE (test code = CL) 103.0 mmol/L 98-107 N CARBON DIOXIDE (test code = CO2) 32.0 mmol/L 21-32 N ANION GAP (test code = GAP) 7.7 10-20 L GLUCOSE (test code = GLU) 93 mg/dL 74-106 N BLOOD UREA NITROGEN (test code = BUN) 12 mg/dL 7-18 N GLOMERULAR FILTRATION RATE (test code = GFR) > 60 mL/min >=60 Estimated GFR by using Modified MDRD formula.Chronic kidney disease is defined as either kidney damageor GFR <60 mL/min/1.73 m2 for >3 months. CREATININE (test code = CREAT) 0.90 mg/dL 0.7-1.3 N BUN/CREATININE RATIO (test code = BUN/CREA) 13.3 10-20 N TOTAL PROTEIN (test code = PROT) 7.9 gram/dL 6.4-8.2 N ALBUMIN (test code = ALB) 3.9 g/dL 3.4-5.0 N GLOBULIN (test code = GLOB) 4.0 gram/dL 2.7-4.2 N ALBUMIN/GLOBULIN RATIO (test code = A/G) 1.0 0.75-1.50 N CALCIUM (test code = CA) 8.6 mg/dL 8.5-10.1 N BILIRUBIN TOTAL (test code = BILT) 0.40 mg/dL 0.0-1.0 N SGOT/AST (test code = AST) 27 IUnit/L 15-37 N SGPT/ALT (test code = ALT) 36 IUnit/L 12-78 N ALKALINE PHOSPHATASE TOTAL (test code = ALKP) 112 IUnit/L 45-117 N Note change in reference range due to change in reagent. COMPREHENSIVE METABOLIC [id number] 14:13:00* Test Item Value Reference Range Interpretation Comments SODIUM (test code = NA) 139 mmol/L 136-145 N POTASSIUM (test code = K) 3.7 mmol/L 3.5-5.1 N CHLORIDE (test code = CL) 103.0 mmol/L 98-107 N CARBON DIOXIDE (test code = CO2) mmol/L 21-32 ANION GAP (test code = GAP) 10-20 GLUCOSE (test code = GLU) mg/dL 74-106 BLOOD UREA NITROGEN (test code = BUN) mg/dL 7-18 GLOMERULAR FILTRATION RATE (test code = GFR) mL/min >=60 CREATININE (test code = CREAT) mg/dL 0.7-1.3 BUN/CREATININE RATIO (test code = BUN/CREA) 10-20 TOTAL PROTEIN (test code = PROT) gram/dL 6.4-8.2 ALBUMIN (test code = ALB) g/dL 3.4-5.0 GLOBULIN (test code = GLOB) gram/dL 2.7-4.2 ALBUMIN/GLOBULIN RATIO (test code = A/G) 0.75-1.50 CALCIUM (test code = CA) mg/dL 8.5-10.1 BILIRUBIN TOTAL (test code = BILT) mg/dL 0.0-1.0 SGOT/AST (test code = AST) IUnit/L 15-37 SGPT/ALT (test code = ALT) IUnit/L 12-78 ALKALINE PHOSPHATASE TOTAL (test code = ALKP) IUnit/L 45-117 CBC W/AUTO [id number] 14:08:00* Test Item Value Reference Range Interpretation Comments WHITE BLOOD CELL (test code = WBC) 7.5 K/mm3 4.5-12.5 N RED BLOOD CELL (test code = RBC) 4.78 mill/mm3 4.0-5.8 N HEMOGLOBIN (test code = HGB) 13.4 gram/dL 13.0-17.5 N HEMATOCRIT (test code = HCT) 41.1 % 42.0-52.0 L MEAN CELL VOLUME (test code = MCV) 86.0 fL 80-98 N MEAN CELL HGB (test code = MCH) 28.0 picogram 27.0-33.0 N MEAN CELL HGB CONCETRATION (test code = MCHC) 32.6 gram/dL 33.0-36. 0 L RED CELL DISTRIBUTION WIDTH (test code = RDW) 12.7 % 11.6-16. 2 N RED CELL DISTRIBUTION WIDTH SD (test code = RDW-SD) 39.6 fL 37 .0-51.0 N PLATELET COUNT (test code = PLT) 248 K/mm3 150-450 N MEAN PLATELET VOLUME (test code = MPV) 10.5 fL 6.7-11.0 N NEUTROPHIL % (test code = NT%) 60.8 % 39.0-69.0 N IMMATURE GRANULOCYTE % (test code = IG%) 1.1 % 0.0-5.0 N LYMPHOCYTE % (test code = LY%) 26.8 % 25.0-55.0 N MONOCYTE % (test code = MO%) 6.7 % 0.0-10.0 N EOSINOPHIL % (test code = EO%) 3.5 % 0.0-5.0 N BASOPHIL % (test code = BA%) 1.1 % 0.0-1.0 H NUCLEATED RBC % (test code = NRBC%) 0.0 % 0-0 N NEUTROPHIL # (test code = NT#) 4.54 K/mm3 1.8-7.7 N IMMATURE GRANULOCYTE # (test code = IG#) 0.08 x10 3/uL 0-0.03 H LYMPHOCYTE # (test code = LY#) 2.00 K/mm3 1.0-5.0 N MONOCYTE # (test code = MO#) 0.50 K/mm3 0-0.8 N EOSINOPHIL # (test code = EO#) 0.26 K/mm3 0.0-0.5 N BASOPHIL # (test code = BA#) 0.08 K/mm3 0.0-0.2 N NUCLEATED RBC # (test code = NRBC#) 0.00 K/mm3 0.0-0.1 N CBC W/AUTO [id number] 14:05:00* Test Item Value Reference Range Interpretation Comments WHITE BLOOD CELL (test code = WBC) K/mm3 4.5-12.5 RED BLOOD CELL (test code = RBC) mill/mm3 4.0-5.8 HEMOGLOBIN (test code = HGB) 13.4 gram/dL 13.0-17.5 N HEMATOCRIT (test code = HCT) % 42.0-52.0 MEAN CELL VOLUME (test code = MCV) fL 80-98 MEAN CELL HGB (test code = MCH) picogram 27.0-33.0 MEAN CELL HGB CONCETRATION (test code = MCHC) gram/dL 33.0-36. 0 RED CELL DISTRIBUTION WIDTH (test code = RDW) % 11.6-16. 2 RED CELL DISTRIBUTION WIDTH SD (test code = RDW-SD) fL 37 .0-51.0 PLATELET COUNT (test code = PLT) K/mm3 150-450 MEAN PLATELET VOLUME (test code = MPV) fL 6.7-11.0 NEUTROPHIL % (test code = NT%) % 39.0-69.0 IMMATURE GRANULOCYTE % (test code = IG%) % 0.0-5.0 LYMPHOCYTE % (test code = LY%) % 25.0-55.0 MONOCYTE % (test code = MO%) % 0.0-10.0 EOSINOPHIL % (test code = EO%) % 0.0-5.0 BASOPHIL % (test code = BA%) % 0.0-1.0 NEUTROPHIL # (test code = NT#) K/mm3 1.8-7.7 LYMPHOCYTE # (test code = LY#) K/mm3 1.0-5.0 MONOCYTE # (test code = MO#) K/mm3 0-0.8 EOSINOPHIL # (test code = EO#) K/mm3 0.0-0.5 BASOPHIL # (test code = BA#) K/mm3 0.0-0.2 - XR CHEST 2 [id number] 13:25:00 FAX: Stew Ceballos [phone] [place]: O St: PRE Name: Roya LEIJAWINIFRED [facility] : [birth year] 50 Age/S: 72/M [address] [facility] Unit #: [id number] Loc: [place] [address] Phys: Stew Barone Acct: [id number] Dis Date: Status: [place] [facility] [place]ONE #: [phone] Exam Date: 09/13/2018 1311 FAX #: [phone] Reason: PRE OP EXAMS: CPT CODE: [id number] XR CHEST 2 V 24674 HISTORY: Preop. COMP ARISON: None available. AP and lateral view of the chest: No acute infiltrates, effusion or congestion. Lung scarring. Cardiac silhouette is nonenlarged. DJD of the dorsal spine. IMPRESSION: No acute infiltrates, effusion or congestion. Yris ctronically Signed by Jose David Cyr on 09/13/2018 at 1325 Reported and signed by: Won Cyr M.D. CC: Stew Barone MD Technologist: Dragan cash RT(R) Trnscrd Date/Time/By: 09/13/2018 (1 695) : By: [email or web address] Orig Print D/T: S: 09/13/2018 (0206) PAGE 1 Signed Report
== END 2020-01-16 21:06 | disposition other institution (70) ==
LOC: ER 16:50
DX: U07.1 COVID-19 (principal); R09.02 Hypoxemia; R50.9 Fever, unspecified; R94.31 Abnormal electrocardiogram [ECG] [EKG]
CPT/HCPCS: 36415; 71045; 80053; 82550; 82553; 83735; 83880; 84484; 85025; 85610; 85730; 87040; 87071; 87205; 87400; 93005; 99284; J0696; J1100; J7030; U0002